=== PATIENT | female | born 1975 | race Caucasian/White ===

== ENCOUNTER 2017-05-14 10:11 | Emergency (ER) | payer OTHER ==
[2017-05-14 10:29] VITALS: BP 175/100; PULSE 93; RESP 16; TEMP 98.6; O2SAT 98
[2017-05-14] MEDS ORDERED: AMOXICILLIN/CLAVULANATE K 875 MG TAB PO ONE (10:45)
[2017-05-14] MEDS ORDERED: RABIES IMMUNE GLOBULIN INJ 1,500 UNITS/10 ML VIAL IM ONE (10:45)
[2017-05-14] MEDS ORDERED: TETANUS/DIPHTHERIA TOXOID ADULT 0.5 ML VIAL IM ONE (10:45)
--- NOTE | 2017-05-14 10:55 | PD ---
HPI Chief Complaint: Bite or Sting Time Seen by Provider: 10:36 Travel History International Travel<30 days: No Contact w/Intl Traveler<30days: No Traveled to known affect area: No History of Present Illness HPI Patient comes emergency department complaining of a cat bite to right forearm that occurred yesterday at work. Patient reports she clean the wounds with and took a couple doses of leftover antibiotic. Patient was initially not concerned , however found out the cat's rabies shots were not up-to-date and is wanting to get rabies prophylaxis treatment along with Augmentin. Patient reports mild tenderness around the site to palpation. Not touching it makes the pain better. Denies any radiation of pain. Denies any fevers. Reports tetanus shot is not up-to-date. Denies any numbness or tingling. PFSH Past Medical History Medical History: Denies Significant Hx Social History Tobacco Use: No Substance Use: No Allergies-Medications (Allergen,Severity, Reaction): Coded Allergies: No Known Allergies (Unverified , 05/14/17) Reported Meds & Prescriptions Reported Meds & Active Scripts Active Augmentin (Amoxicillin-Clavulanate) 875-125 Mg Tab 1 Tab PO BID 10 Days Review of Systems Except as stated in HPI: all other systems reviewed are Neg Physical Exam Narrative GENERAL: Well-developed, overly nourished, in no acute distress, and non-ill appearing. SKIN: Multiple small scabbed over puncture wounds and scratch calvin noted patient's right forearm consistent with a Bite. There is no crepitus. There is surrounding erythematous is febrile to palpation. There is no obvious foreign body. No streaking. Neurovascularly intact distally with full range of motion. HEAD: Atraumatic. Normocephalic. EYES: Pupils equal and round. EOMI. No scleral icterus. No injection or drainage. ENT: No nasal bleeding or discharge. Mucous membranes pink and moist. NECK: Trachea midline. Supple. No nuclear rigidity. RESPIRATORY: No accessory muscle use. No respiratory distress. MUSCULOSKELETAL: No obvious deformities. No clubbing. No cyanosis. No edema. Full range of motion. NEUROLOGICAL: Awake and alert. No obvious cranial nerve deficits. Motor grossly within normal limits. Normal speech. PSYCHIATRIC: Appropriate mood and affect; insight and judgment normal. Data Data Last Documented VS Vital Signs Date Time Temp Pulse Resp B/P (MAP) Pulse Ox O2 Delivery O2 Flow Rate FiO2 05/14/17 10:29 98.6 93 16 175/100 (125) 98 Orders Orders Tetanus/Diphtheria Tox Adult (Tetanus/Di (05/14/17 10:45) Rabies Immune Globulin Inj (Hyperrab S/D (05/14/17 10:45) Amoxicil-Clavulanate (Augmentin) (05/14/17 10:45) Forearm (2vws) (05/14/17 ) Rabies Vaccine Chick Emb Inj (Rabavert I (05/14/17 11:15) Ed Discharge Order (05/14/17 11:40) MDM Medical Decision Making Medical Screen Exam Complete: Yes Emergency Medical Condition: Yes Interpretation(s) Last Impressions Radius/Ulna X-Ray 05/14/17 0000 Signed Impressions: Service Date/Time: May 10:51 - CONCLUSION: No fracture. Koko Henao MD Differential Diagnosis Bite, wound infection, foreign body, rabies exposure Narrative Course The patient suffered animal bite wound. There is no evidence of deep tissue involvement and/or local tendon involvement. There was no evidence to suggest foreign bodies. Visual, radiographic, and tactile exams were unremarkable. There was no evidence of neurovascular injury as well. Rabies prophylaxis was discussed at length with the patient. Cat is reported to be domesticated, can be watched, and exposure appears low risk, however patient is still waiting to get rabies treatment. Rabies prophylaxis and treatment plan was discussed with the patient. Human rabies immune globulin (HRIG) and initial Rabies vaccine was begun in the ED. The patient was given signs and symptom warnings for infection , such as increasing pain, pain with movement of involved extremity, redness, swelling, associated heat, pus or fever. The patient was given antibiotics to cover mouth fei and instructions for timely follow up for wound recheck. The patient agreed with plan of care. Animal control was contacted her hospital protocol. The patient was instructed to go to the health department or return here on days 3, 7 and 14 post exposure. X-ray was performed and there was no foreign body or tooth/tooth fragment. Patient in no obvious distress upon re-evaluation. All pertinent Radiology result(s) discussed with patient. Patient was asked if they wanted to speak to my attending, which the patient did not wish to do at this time. Any questions/ concerns in reference to patient diagnosis/condition discussed and clarified prior to patient's discharge. Reinforced sheer importance of close follow up with patient's primary physician or primary care clinic. Instructed patient to return to ED immediately, if symptoms return/worsen. Patient showed understanding of above instructions. Further instructions and recommendations were detailed in discharge paperwork. Patient ambulated without difficulty out of ED at discharge. Procedures Procedure Narrative Verbal consent was obtained. Area was cleaned and prepped. Rabies immunoglobulin was injected around site of bites with remainder was injected half of the right thigh half the left thigh. Patient tolerated procedure well. There is no complications. Diagnosis Primary Impression: Bite from cat Qualified Codes: W55.01XA - Bitten by cat, initial encounter [facility] Patient Instructions: Animal Bite (ED), General Instructions Additional Instructions: Follow-up with the health department or return here in 3, 7, and 14 days for additional rabies vaccination. Take all medication as prescribed. Use over-the -counter Tylenol and ibuprofen as needed for pain. Follow instructions on the packaging. Keep wound dry and clean as possible using soap and water. Return to the emergency department if symptoms get worse. Med/Other Pt SpecificInfo: Prescription(s) given Scripts Amoxicillin-Clavulanate (Augmentin) 875-125 Mg Tab 1 TAB PO BID for Infection for 10 Days, #20 TAB 0 Refills Prov: Omkar House MD 05/14/17 Disposition: 01 DISCHARGE HOME Condition: Stable Juan Jackson May 14, 2017 10:55
--- NOTE | 2017-05-14 11:13 | RADRPT ---
EXAM DATE/TIME: 05/14/2017 10:51 [facility] COMPARISON: No previous studies available for comparison. INDICATIONS : Pain post cat bite. MEDICAL HISTORY : None. SURGICAL HISTORY : None. ENCOUNTER: Initial ACUITY: 2 days PAIN SCORE: 10 LOCATION: Right Right. FINDINGS: Two view examination of the right forearm demonstrates no evidence of fracture or dislocation. Bony mineralization is normal. The soft tissue structures are intact. CONCLUSION: No fracture. Koko Henao MD on May 14, 2017 at 11:10 Board Certified Radiologist. This report was verified electronically.
[2017-05-14] MEDS ORDERED: RABIES VACCINE CHICK EMB INJ 2.5 UNITS/ML SYR IM ONE (11:15)
[2017-05-14] MEDS ORDERED: AUGM875T3 PO (11:21)
== END 2017-05-14 12:00 | disposition home or self-care (01) ==
LOC: NEPK 10:11
DX: S51.851A Open bite of right forearm, initial encounter (principal); Z23 Encounter for immunization; Z29.14 Encounter for prophylactic rabies immune globulin; W55.01XA Bitten by cat, initial encounter; W55.03XA Scratched by cat, initial encounter; Y99.0 Civilian activity done for income or pay
CPT/HCPCS: 73090; 90375; 90471; 90675; 90714; 96372

== ENCOUNTER 2017-05-17 14:31 | Emergency (ER) | payer OTHER ==
[~2017-05-17] VITALS: Ht 172.7 cm; Wt 130.0 kg
[~2017-05-17 14:31] MED LIST: AUGM875T3 PO
[2017-05-17 14:38] VITALS: BP 171/96; PULSE 80; RESP 18; TEMP 99.2; O2SAT 99
--- NOTE | 2017-05-17 16:43 | PD ---
HPI Chief Complaint: Bite or Sting Time Seen by Provider: 16:34 Travel History International Travel<30 days: No Contact w/Intl Traveler<30days: No Traveled to known affect area: No History of Present Illness HPI 42-year-old female arrives for her day three rabies vaccine shot. She reports compliance with Augmentin following a cat bite. Minimal erythema in the right forearm has decreased overall in size in order of pain. PFSH Social History Tobacco Use: No Substance Use: No Allergies-Medications (Allergen,Severity, Reaction): Coded Allergies: No Known Allergies (Unverified , 05/17/17) Reported Meds & Prescriptions Reported Meds & Active Scripts Active Augmentin (Amoxicillin-Clavulanate) 875-125 Mg Tab 1 Tab PO BID 10 Days Review of Systems General / Constitutional: No: Fever HENT: No: Lightheadedness Respiratory: No: Shortness of Breath, Wheezing Physical Exam Narrative GENERAL: 42-year-old female pleasant no acute distress Vital Signs Date Time Temp Pulse Resp B/P (MAP) Pulse Ox O2 Delivery O2 Flow Rate FiO2 05/17/17 14:38 99.2 80 18 171/96 (121) 99 SKIN: Warm and dry. Trace erythema about the anterior aspect of the right forearm about 2 cm in diameter clear margins erythematous. No fluctuance. HEAD: Normocephalic. EYES: No scleral icterus. No injection or drainage. NECK: Supple, trachea midline. No JVD or lymphadenopathy. CARDIOVASCULAR: Regular rate and rhythm without murmurs, gallops, or rubs. RESPIRATORY: Breath sounds equal bilaterally. No accessory muscle use. GASTROINTESTINAL: Abdomen soft, non-tender, nondistended. MUSCULOSKELETAL: No cyanosis, or edema. BACK: Nontender without obvious deformity. No CVA tenderness. Data Data Last Documented VS Vital Signs Date Time Temp Pulse Resp B/P (MAP) Pulse Ox O2 Delivery O2 Flow Rate FiO2 05/17/17 14:38 99.2 80 18 171/96 (121) 99 Orders Orders Rabies Vaccine Human Cell Inj (Imovax In (05/17/17 16:45) [facility] [place] Medical Decision Making Medical Screen Exam Complete: Yes Emergency Medical Condition: Yes Medical Record Reviewed: Yes Differential Diagnosis cellulitis, abscess, rabies Narrative Course cellulitis minimal and evidently improving human cell rabies vaccine ordered Diagnosis Primary Impression: Cat bite Qualified Codes: W55.01XA - Bitten by cat, initial encounter Additional Impression: Rabies, need for prophylactic vaccination against Referrals: Primary Care Physician 2 days Med/Other Pt SpecificInfo: No Change to Meds Disposition: 01 DISCHARGE HOME Condition: Stable William Hammonds MD May 17, 2017 16:43
[2017-05-17] MEDS ORDERED: RABIES VACCINE HUMAN DIPL CELL 2.5 UNITS/ML SYRINGE IM ONE (16:45)
== END 2017-05-17 17:27 | disposition home or self-care (01) ==
LOC: NEPD 14:31
DX: T14.8XXD Other injury of unspecified body region, subsequent encounter (principal); W55.01XD Bitten by cat, subsequent encounter; Z23 Encounter for immunization
CPT/HCPCS: 90471; 90675

== ENCOUNTER 2017-05-24 08:38 | Emergency (ER) | payer OTHER ==
[~2017-05-24] VITALS: Ht 172.7 cm; Wt 110.0 kg
[2017-05-24 08:40] VITALS: BP 178/110; PULSE 109; RESP 16; TEMP 98; O2SAT 99
--- NOTE | 2017-05-24 08:58 | PD ---
HPI Chief Complaint: Medical Clearance Time Seen by Provider: 08:46 Travel History International Travel<30 days: No Contact w/Intl Traveler<30days: No Traveled to known affect area: No History of Present Illness HPI patient is here on thursday for imovax vax due to [facility] closed. original incident occurred on 05/13/17 at work. here for 3rd dose. patient continuing to take empiric antibiotics and states that her wounds are healing well and denies any drainage , streaking or redness to skin PFSH Social History Alcohol Use: No Tobacco Use: No Substance Use: No Allergies-Medications (Allergen,Severity, Reaction): Coded Allergies: No Known Allergies (Unverified , 05/24/17) Reported Meds & Prescriptions Reported Meds & Active Scripts Active Augmentin (Amoxicillin-Clavulanate) 875-125 Mg Tab 1 Tab PO BID 10 Days Review of Systems Except as stated in HPI: all other systems reviewed are Neg Physical Exam Narrative GENERAL: SKIN: Warm and dry.healing puncture wounds on right flexor aspect of right forearms HEAD: Atraumatic. Normocephalic. EYES: Pupils equal and round. No scleral icterus. No injection or drainage. ENT: No nasal bleeding or discharge. Mucous membranes pink and moist. NECK: Trachea midline. No JVD. CARDIOVASCULAR: Regular rate and rhythm. RESPIRATORY: No accessory muscle use. Clear to auscultation. Breath sounds equal bilaterally. GASTROINTESTINAL: Abdomen soft, non-tender, nondistended. Hepatic and splenic margins not palpable. MUSCULOSKELETAL: Extremities without clubbing, cyanosis, or edema. No obvious deformities. NEUROLOGICAL: Awake and alert. No obvious cranial nerve deficits. Motor grossly within normal limits. Five out of 5 muscle strength in the arms and legs. Normal speech. PSYCHIATRIC: Appropriate mood and affect; insight and judgment normal. Data Data Last Documented VS Orders Orders Rabies Vaccine Human Cell Inj (Imovax In (05/24/17 09:00) Ed Discharge Order (05/24/17 09:31) [facility] [place] Medical Decision Making Medical Screen Exam Complete: Yes Emergency Medical Condition: Yes Medical Record Reviewed: Yes Differential Diagnosis n/a Narrative Course doing well, finishing augmentin doses and here for 3rd out of 4th imovax dose Diagnosis Primary Impression: s/p cat bite, imovax 3rd dose Patient Instructions: General Instructions Additional Instructions: return in 7 days for last dose and follow up with your primary care for further care including blood pressure evaluation Disposition: 01 DISCHARGE HOME Condition: Stable Tej Rosales MD May 24, 2017 08:58
[2017-05-24] MEDS ORDERED: RABIES VACCINE HUMAN DIPL CELL 2.5 UNITS/ML SYRINGE IM ONE (09:00)
== END 2017-05-24 09:54 | disposition home or self-care (01) ==
LOC: NEPD 08:38
DX: T14.8XXA Other injury of unspecified body region, initial encounter (principal); W55.01XA Bitten by cat, initial encounter; Z23 Encounter for immunization; Z79.2 Long term (current) use of antibiotics
CPT/HCPCS: 90471; 90675